=== PATIENT | female | born 1985 | race Caucasian/White ===

== ENCOUNTER 2021-01-08 04:35 | Day surgery (SDC) | payer BC ==
[2021-01-08 09:56] VITALS: BMI 24.9
[2021-01-08 10:20] VITALS: TEMP 97.8
[2021-01-08 11:05] VITALS: BP 106/78; PULSE 84
== END 2021-01-08 11:05 | disposition home or self-care (01) ==
LOC: JASU-ENDO 04:35
PROVIDERS: ATTEND Internal Medicine Gastroenterology
PROC: 0DB78ZX Excision of Stomach, Pylorus, Via Natural or Artificial Opening Endoscopic, Diagnostic (ICD-10-PCS; 2021-01-08)
PROC: 0DB98ZX Excision of Duodenum, Via Natural or Artificial Opening Endoscopic, Diagnostic (ICD-10-PCS; principal; 2021-01-08 10:00)
DX: K29.50 Unspecified chronic gastritis without bleeding (principal); K30 Functional dyspepsia
CPT/HCPCS: 81025; 88305-TC; 88342-TC

== ENCOUNTER 2021-08-30 19:45 | Emergency (ER) | payer BC ==
[2021-08-30 20:23] VITALS: BP 118/85; PULSE 115; TEMP 98.7; BMI 23.1
== END 2021-08-30 20:45 | disposition home or self-care (01) ==
LOC: JER 19:45
DX: F41.9 Anxiety disorder, unspecified (principal)
CPT/HCPCS: 99283-25